=== PATIENT | male | born 1985 | race American Indian/Alaskan Native ===

== ENCOUNTER 2021-05-16 07:48 | Emergency (ER) | payer BC ==
[2021-05-16 08:00] VITALS: BP 148/84
--- NOTE | 2021-05-16 09:05 | Emergency Department Report ---
ED ENT HPI - General Chief complaint: Dental/Oral Stated complaint: DENTAL PAIN Time Seen by Provider: 05/16/21 08:53 Source: patient Mode of arrival: Ambulatory Limitations: No Limitations - History of Present Illness Initial comments: 35-year-old -[place] male presents to the emergency room stating that he has a hole in his tooth and it is causing pain. Patient reports he has been taking Goody powders but is not helping. Patient has not followed up with a dentist. He denies any trauma to his jaw denies any swelling no purulent discharge from his mouth no fevers. Denies any past medical history. MD complaint: tooth pain Onset/Timin -: week(s) Location: tooth # (3) Severity: severe Severity scale (0 -10): 8 Quality: aching, sharp Consistency: intermittent Improves with: none Worsens with: eating Context- Dental: history of dental caries, poor dental care Associated Symptoms: toothache - Related Data Allergies Allergy/AdvReac Type Severity Reaction Status Date / Time No Known Allergies Allergy Unverified 05/16/21 07:57 ED Dental HPI - General Chief complaint: Dental/Oral Stated complaint: DENTAL PAIN Time Seen by Provider: 05/16/21 08:53 Source: patient Mode of arrival: Ambulatory Limitations: No Limitations - Related Data Allergies Allergy/AdvReac Type Severity Reaction Status Date / Time No Known Allergies Allergy Unverified 05/16/21 07:57 ED Review of Systems ROS: Stated complaint: DENTAL PAIN Other details as noted in HPI Comment: All other systems reviewed and negative ED Past Medical Hx - Past Medical History Previous Medical History?: No - Surgical History Past Surgical History?: Yes Additional Surgical History: nerve reconstructive surgery to index finger - Social History Smoking Status: Never Smoker Substance Use Type: None ED Physical Exam - General Limitations: No Limitations General appearance: alert, in no apparent distress - Head Head exam: Present: atraumatic, normocephalic - Eye Eye exam: Present: normal appearance - Expanded ENT Exam Expanded Teeth exam: Present: dental caries (Tooth #3 decayed). Absent: gingival enlargement Throat exam: Positive: normal inspection - Neck Neck exam: Present: normal inspection, full ROM - Respiratory Respiratory exam: Absent: accessory muscle use - Cardiovascular Cardiovascular Exam: Present: regular rate - Extremities Exam Extremities exam: Present: normal inspection, full ROM - Back Exam Back exam: Present: normal inspection - Neurological Exam Neurological exam: Present: alert, oriented X3, normal gait - Psychiatric Psychiatric exam: Present: normal affect, normal mood - Skin Skin exam: Present: warm, dry, intact, normal color. Absent: rash ED Course Vital Signs 05/16/21 05/16/21 07:59 08:21 Temperature 98.3 F Pulse Rate 82 Respiratory 18 18 Rate Blood Pressure 148/84 [Right] O2 Sat by Pulse 97 Oximetry ED Medical Decision Making - Medical Decision Making 35-year-old -[place] male presents to the emergency room stating that he has a hole in his tooth and it is causing pain. Patient reports he has been taking Goody powders but is not helping. Patient has not followed up with a dentist. He denies any trauma to his jaw denies any swelling no purulent discharge from his mouth no fevers. Denies any past medical history. Discussed with patient that there is no signs of a dental abscess as there is no swelling of the gum because of swelling of his face there is no discharge. Discussed with patient his tooth pain is due to a cavity that has right now the tooth. Discussed with patient treatment his pain medicine and have the tooth evaluated by dentist for possible filling or removal or even a root canal. Patient was given a handout with several dentists for him to follow-up. Critical care attestation.: If time is entered above; I have spent that time in minutes in the direct care of this critically ill patient, excluding procedure time. ED Disposition Clinical Impression: Pain due to dental caries Disposition: DC-01 TO HOME OR SELFCARE Is pt being admited?: No Does the pt Need Aspirin: No Condition: Stable Instructions: Preventive Dental Care, Adult Additional Instructions: Please continue with ibuprofen for pain management. Follow-up at the dentist is she do not have an infection you have a hole in your tooth from the cavity. Referrals: [facility] [Outside] - 3-5 Days [facility] [Outside] - 3-5 Days Forms: Work/School Release Form(ED) Time of Disposition: 09:03
== END 2021-05-16 09:32 | disposition home or self-care (01) ==
LOC: ED 07:48
DX: K02.9 Dental caries, unspecified (principal); Z98.890 Other specified postprocedural states
CPT/HCPCS: 99282

== ENCOUNTER 2021-06-26 18:16 | Emergency (ER) | payer BC | END 2021-06-26 23:35 | disposition left against medical advice (07) | LOC: ED 18:16 | DX: M54.5 Low back pain (principal); Z53.21 Procedure and treatment not carried out due to patient leaving prior to being seen by health care provider ==